=== PATIENT | female | born 1990 | race Hispanic/Latino ===

== ENCOUNTER 2018-09-30 17:10 | Emergency (ER) | payer MEDICAID ==
[2018-09-30 18:46] LABS: BASO % 0.3 % (0.0-2.0); EOS # 0.1 K/uL (0.0-0.7); EOS % 1.7 % (0.0-4.0); HEMOGLOBIN 12.7 g/dL (12.0-16.0); LYMPH % 28.2 % (20.0-40.0); MEAN CORPUSCULAR HEMOGLOBIN 29.6 pg (27.0-31.0); MEAN CORPUSCULAR HGB CONC 33.6 g/dL (33.0-37.0); MEAN PLATELET VOLUME 7.7 fl (7.2-11.7); MONO # 0.5 K/uL (0.0-0.8); MONO % 7.3 % (0.0-10.0); NEUT # 4.5 K/uL (1.8-7.0); NEUT % 62.5 % (50.0-75.0); NRBC % 0.1 % (0.0-0.0); RBC 4.31 Mil/uL (3.80-5.20); RED CELL DISTRIBUTION WIDTH 13.3 % (11.5-14.5); WHITE BLOOD COUNT 7.2 K/uL (4.8-10.8)
[2018-09-30 18:54] LABS: SQUAMOUS EPITHIAL 4 /hpf (0-5); URINE BACTERIA RARE (<OCC); URINE BILIRUBIN NEGATIVE (NEGATIVE); URINE BLOOD NEGATIVE (NEGATIVE); URINE CLARITY SLIGHTY-CLOUDY (Clear); URINE COLOR YELLOW (YELLOW); URINE GLUCOSE (UA) NEG (NEGATIVE); URINE LEUKOCYTE ESTERASE NEG Leu/uL (Negative); URINE PROTEIN NEGATIVE (NEGATIVE); URINE UROBILINOGEN 0.2-1.0 mg/dL (0.2-1.0)
[2018-09-30 18:59] LABS: BLOOD UREA NITROGEN 13 mg/dl (7-17); CALCIUM 9.1 mg/dL (8.4-10.2); GFR NON-AFRICAN AMERICAN > 60
--- NOTE | 2018-09-30 20:04 | ED PDOC ---
History of Present Illness History of Present Illness: 27 year old female with a history of hypothyroidism and gastritis presents to the ED for evaluation of constant nausea, lower abdominal pain, decreased appetite, left ear and throat pain and a left sided headache for 1 1/2 weeks. Patient reports symptoms are also associated with four episodes of vomiting and occasional cough. She states that nausea is strongly related to certain smells. LNMP was in the beginning of August. Initially, she was suspicious for , but took an at home test that was negative. Noted that patient has been defecating less often that usual, only once a day, and states that is could be related to decreased food intake. Last normal bowel movement was this morning. She reports that these current symptoms feel different than past episodes of gastritis. Denies urinary symptoms, vaginal bleeding, sick contacts and any recent travel. PMD: none HPI: Influenza Time Seen by Provider: 09/30/18 17:55 Chief Complaint: Abdominal Pain Chief Complaint (Provider): Abdominal Pain History Per: Patient Exam Limitations: no limitations Have you had recent travel within the past 21 days to any of: No Onset/Duration Of Symptoms: Days (1 1/2 weeks) Symptoms include: headache, sore throat, vomiting, other (decreased appetite) Sick Contacts (Context): None Past Medical History Reviewed: Historical Data, Nursing Documentation, Vital Signs Vital Signs: Last Vital Signs Temp 98.8 F 09/30/18 17:44 Pulse 70 09/30/18 17:44 Resp 18 09/30/18 17:44 BP 136/87 09/30/18 17:44 Pulse Ox 100 09/30/18 17:44 - Medical History PMH: Gastritis, Hypothyroidism Denies: Chronic Kidney Disease - Surgical History Surgical History: Tonsillectomy - Family History Family History: States: Unknown Family Hx - Social History Current smoker - smoking cessation education provided: No Drugs: Cannabis (occasionally) - Home Medications Home Medications: Ambulatory Orders Medication Instructions Recorded Amoxicillin/Clavulanate Pota 1 tab PO BID #0 tab 03/09/15 [Augmentin 875 mg-125 mg] Sulfamethoxazole/Trimethoprim 1 tab PO BID #0 tab 03/09/15 [Bactrim DS 800 mg-160 mg] Terconazole [Terazol 7 (0.4%)Cream] 1 applic VG HS #0 tube 03/09/15 - Allergies Allergies/Adverse Reactions: Allergies Allergy/AdvReac Type Severity Reaction Status Date / Time No Known Allergies Allergy Verified 03/07/15 03:22 Review of Systems ROS Statement: Except As Marked, All Systems Reviewed And Found Negative Constitutional: Positive for: Other. Negative for: Fever, Chills ENT: Positive for: Ear Pain (left), Throat Pain Gastrointestinal: Positive for: Nausea, Vomiting, Abdominal Pain (lower) Neurological: Positive for: Headache (left) - Laboratory Results Result Diagrams: 09/30/18 18:15 09/30/18 18:15 Lab Results: Urine Color Yellow (YELLOW) 09/30/18 18:15 Urine Clarity Slighty-cloudy (Clear) 09/30/18 18:15 Urine pH 6.0 (5.0-8.0) 09/30/18 18:15 Ur Specific [place] 1.024 (1.003-1.030) 09/30/18 18:15 Urine Protein Negative mg/dL (NEGATIVE) 09/30/18 18:15 Urine Glucose (UA) Neg mg/dL (NEGATIVE) 09/30/18 18:15 Urine Ketones Trace mg/dL (NEGATIVE) 09/30/18 18:15 Urine Blood Negative (NEGATIVE) 09/30/18 18:15 Urine Nitrate Negative (NEGATIVE) 09/30/18 18:15 Urine Bilirubin Negative (NEGATIVE) 09/30/18 18:15 Urine Urobilinogen 0.2-1.0 mg/dL (0.2-1.0) 09/30/18 18:15 Ur Leukocyte Esterase Neg Cristian/uL (Negative) 09/30/18 18:15 Urine RBC (Auto) 2 /hpf (0-3) 09/30/18 18:15 Urine Microscopic WBC 1 /hpf (0-5) 09/30/18 18:15 Ur Squamous Epith Cells 4 /hpf (0-5) 09/30/18 18:15 Urine Bacteria Rare (<OCC) 09/30/18 18:15 Beta HCG, Quant 875288.00 mIU/mL 09/30/18 18:40 - ECG O2 Sat by Pulse Oximetry: 100 Disposition - Disposition
--- NOTE | 2018-09-30 20:07 | ED PDOC ---
HPI: Abdomen Time Seen by Provider: 09/30/18 17:55 Chief Complaint (Nursing): Abdominal Pain Chief Complaint (Provider): Abdominal Pain History Per: Patient History/Exam Limitations: no limitations Onset/Duration Of Symptoms: Days (1 1/2 weeks) Outside of [place] travel?: No Current Symptoms Are (Timing): Still Present Quality Of Discomfort: "Pain" Associated Symptoms: Nausea, Vomiting, Loss Of Appetite. denies: Urinary Sy mptoms Additional Complaint(s): 27 year old female with a history of hypothyroidism and gastritis presents to the ED for evaluation of constant nausea, lower abdominal pain, decreased appetite, left ear and throat pain and a left sided headache for 1 1/2 weeks. Patient reports symptoms are also associated with four episodes of vomiting and occasional cough. She states that nausea is strongly related to certain smells. LNMP was in the beginning of August. Initially, she was suspicious for , but took an at home test that was negative. Noted that paty flood has been defecating less often that usual, only once a day, and states that is could be related to decreased food intake. Last normal bowel movement was this morning. She reports that these current symptoms feel different than past episodes of gastritis. Denies urinary symptoms, vaginal bleeding, sick contacts and any recent travel. Abnormal Vaginal Bleeding: No Last Menstral Period: Beginning of August Past Medical History Reviewed: Historical Data, Nursing Documentation, Vital Signs Vital Signs: Last Vital Signs Temp 98.8 F 09/30/18 17:44 Pulse 70 09/30/18 17:44 Resp 18 09/30/18 17:44 BP 136/87 09/30/18 17:44 Pulse Ox 100 09/30/18 17:44 - Medical History PMH: Gastritis, Hypothyroidism Denies: Chronic Kidney Disease - Surgical History Surgical History: Tonsillectomy - Family History Family History: States: Unknown Family Hx - Social History Current smoker - smoking cessation education provided: No Drugs: Cannabis (occasionally) - Home Medications Home Medications: Ambulatory Orders Medication Instructions Recorded Amoxicillin/Clavulanate Pota 1 tab PO BID #0 tab 03/09/15 [Augmentin 875 mg-125 mg] Sulfamethoxazole/Trimethoprim 1 tab PO BID #0 tab 03/09/15 [Bactrim DS 800 mg-160 mg] Terconazole [Terazol 7 (0.4%)Cream] 1 applic VG HS #0 tube 03/09/15 Amoxicillin 875 mg PO BID 10 Days #20 tablet 09/30/18 Doxylamine/Pyridoxine HCl (B6) 2 each PO TID #30 tablet. 09/30/18 [Star James 10-10 mg Tablet] Oseltamivir Phosphate [Tamiflu] 75 mg PO BID 5 Days #10 capsule 09/30/18 - Allergies Allergies/Adverse Reactions: Allergies Allergy/AdvReac Type Severity Reaction Status Date / Time No Known Allergies Allergy Verified 03/07/15 03:22 Review of Systems ROS Statement: Except As Marked, All Systems Reviewed And Found Negative Constitutional: Negative for: Fever, Chills ENT: Positive for: Ear Pain (left), Throat Pain Respiratory: Positive for: Cough (occasional) Gastrointestinal: Positive for: Nausea, Vomiting, Abdominal Pain. Negative for: Diarrhea, Constipation Genitourinary Female: Negative for: Dysuria, Frequency, Incontinence, Hematuria Neurological: Positive for: Headache (left sided) Physical Exam - Reviewed Nursing Documentation Reviewed: Yes Vital Signs Reviewed: Yes - Physical Exam Comments: GENERAL APPEARANCE: Patient is awake, alert, not toxic appearing, in no acute distress, in no obvious discomfort. HEAD: Atraumatic SKIN: Warm, dry; (-) cyanosis; (-) petechiae, (-) rash. EYES: EOMI, (-) conjunctival pallor, (-) icterus. ENMT: TMs: left: (+) erythema, (+) bulging; Right: (-) erythema, (-) bulging. Pharynx: (+) erythema to posterior pharynx (-) tonsillar erythema, (-) tonsillar exudate, (-) trismus. Airway patent, (-) stridor. Mucous membranes moist. NECK: (-) stiffness, (-) meningismus, (-) lymphadenopathy. CHEST AND RESPIRATORY: (-) retractions, (-) rales, (-) rhonchi, (-) wheezes; breath equal bilaterally. HEART AND CARDIOVASCULAR: (-) irregularity; (-) murmur, (-) gallop. ABDOMEN AND GI: Soft; (+) diffuse lower abdominal tenderness, (+) normal bowel sounds; (-) distention, (-) guarding; (-) palpable mass. EXTREMITIES: (-) deformity; distal pulses are present. NEURO AND PSYCH: Mental status as above; plant general manager II-XII intact; interacts appropriately. Strength and tone good. - Laboratory Results Result Diagrams: 09/30/18 18:15 09/30/18 18:15 Lab Results: Urine Color Yellow (YELLOW) 09/30/18 18:15 Urine Clarity Slighty-cloudy (Clear) 09/30/18 18:15 Urine pH 6.0 (5.0-8.0) 09/30/18 18:15 Ur Specific [place] 1.024 (1.003-1.030) 09/30/18 18:15 Urine Protein Negative mg/dL (NEGATIVE) 09/30/18 18:15 Urine Glucose (UA) Neg mg/dL (NEGATIVE) 09/30/18 18:15 Urine Ketones Trace mg/dL (NEGATIVE) 09/30/18 18:15 Urine Blood Negative (NEGATIVE) 09/30/18 18:15 Urine Nitrate Negative (NEGATIVE) 09/30/18 18:15 Urine Bilirubin Negative (NEGATIVE) 09/30/18 18:15 Urine Urobilinogen 0.2-1.0 mg/dL (0.2-1.0) 09/30/18 18:15 Ur Leukocyte Esterase Neg Cristian/uL (Negative) 09/30/18 18:15 Urine RBC (Auto) 2 /hpf (0-3) 09/30/18 18:15 Urine Microscopic WBC 1 /hpf (0-5) 09/30/18 18:15 Ur Squamous Epith Cells 4 /hpf (0-5) 09/30/18 18:15 Urine Bacteria Rare (<OCC) 09/30/18 18:15 Beta HCG, Quant [id number] mIU/mL 09/30/18 18:40 - ECG O2 Sat by Pulse Oximetry: 100 (RA) Pulse Ox Interpretation: Normal Medical Decision Making Medical Decision Makin:00 Plan: --BMP --CBC --Beta-HCG --urine preg --Reglan 10 mg PO --Tylenol 650 mg PO --throat cx --Influenza AB --Strep --UA test is positive; influenza is positive --Tamiflu 75 mg PO --Ob transvag 20:00 case endorsed to LUIS Reed, pending OB US results and dispo ------ Scribe Attestation: Documented by Bertha Padilla, acting as a scribe Laila Zimmerman PA-C Provider Scribe Attestation: All medical record entries made by the Scribe were at my direction and personall y dictated by me. I have reviewed the chart and agree that the record accurately reflects my personal performance of the history, physical exam, medical decision making, and the department course for this patient. I have also personally directed, reviewed, and agree with the discharge instructions and disposition Disposition - Clinical Impression Clinical Impression: , Influenza A, Otitis media, left - Patient ED Disposition Is Patient to be Admitted: Transfer of Care (case endorsed to LUIS Reed, pending OB US results and dispo) - Disposition Disposition: Transfer of Care (case endorsed to LUIS Reed, pending OB US results and dispo) Disposition Time: 20:04 Condition: STABLE Prescriptions: Amoxicillin 875 mg PO BID 10 Days #20 tablet Doxylamine/Pyridoxine HCl (B6) [Star James 10-10 mg Tablet] 2 each PO TID #30 tablet. Oseltamivir Phosphate [Tamiflu] 75 mg PO BID 5 Days #10 capsule Forms: [employer] (Czech)
--- NOTE | 2018-09-30 20:58 | ED PDOC ---
- Laboratory Results Result Diagrams: 09/30/18 18:15 09/30/18 18:15 Lab Results: Urine Color Yellow (YELLOW) 09/30/18 18:15 Urine Clarity Slighty-cloudy (Clear) 09/30/18 18:15 Urine pH 6.0 (5.0-8.0) 09/30/18 18:15 Ur Specific [place] 1.024 (1.003-1.030) 09/30/18 18:15 Urine Protein Negative mg/dL (NEGATIVE) 09/30/18 18:15 Urine Glucose (UA) Neg mg/dL (NEGATIVE) 09/30/18 18:15 Urine Ketones Trace mg/dL (NEGATIVE) 09/30/18 18:15 Urine Blood Negative (NEGATIVE) 09/30/18 18:15 Urine Nitrate Negative (NEGATIVE) 09/30/18 18:15 Urine Bilirubin Negative (NEGATIVE) 09/30/18 18:15 Urine Urobilinogen 0.2-1.0 mg/dL (0.2-1.0) 09/30/18 18:15 Ur Leukocyte Esterase Neg Cristian/uL (Negative) 09/30/18 18:15 Urine RBC (Auto) 2 /hpf (0-3) 09/30/18 18:15 Urine Microscopic WBC 1 /hpf (0-5) 09/30/18 18:15 Ur Squamous Epith Cells 4 /hpf (0-5) 09/30/18 18:15 Urine Bacteria Rare (<OCC) 09/30/18 18:15 Beta HCG, Quant [id number] mIU/mL 09/30/18 18:40 - ECG O2 Sat by Pulse Oximetry: 100 (RA) - Progress ED Course And Treament: Case endorsed to technical proposal writer from [facility] pending ultrasound and final dispo History Abdominal pain. Comparison None available. Findings Uterus Single live intrauterine gestation. CRL equivalent to 7 wks/1 day gestation Gestational sac diameter equivalent to 7 wks/4 days gestation Heart rate: 143 bpm. [place]-gestational hemorrhage: None. Uterus measures 9 x 6.9 x 5.9 cm. No mass. Cervix Long and closed measuring 3.56 cm. No cervical abnormality seen. Right Ovary Measures 3.7 x 3.1 x 2.3 cm with volume of 13.63 cc. No mass. Normal flow. Cyst measures 1.9 x 1.6 x 1.4 cm. Left Ovary Measures 2.2 x 1.4 x 1.3 cm with volume of 2.21 cc. No mass. Normal flow. Free Fluid None. Other Findings None. Impression 1. Single live intrauterine gestation. 2. Right ovarian cyst 21:00 Patient vomiting, Zofran ordered Patient states she is feeling better on re-eval, tolerating PO. Vitals stable Patient educated on findings, discharged with rx Tamiflu, Amoxicillin, and Diclegis as previously instructed Advised follow up PMD within 2-3 days Fluids, rest Tylenol PRN pain/fever Return precautions given Disposition - Clinical Impression Clinical Impression: , Influenza A, Otitis media, left - POA Present On Arrival: None - Disposition Disposition: Routine/Home Disposition Time: 22:16 Condition: IMPROVED Prescriptions: Amoxicillin 875 mg PO BID 10 Days #20 tablet Doxylamine/Pyridoxine HCl (B6) [Star [place] 10-10 mg Tablet] 2 each PO TID #30 tablet. Oseltamivir Phosphate [Tamiflu] 75 mg PO BID 5 Days #10 capsule Instructions: Ear Infections (Otitis Media), Flu, - The First Month Forms: [employer] (Urdu)
[2018-09-30 21:21] VITALS: BP 117/70; PULSE 60; RESP 20; TEMP 98.3
[2018-09-30 22:16] VITALS: O2SAT 100
--- NOTE | 2018-10-01 10:33 | US ---
Date of service: 09/30/2018 PROCEDURE: TECHNIQUE: Transabdominal transvaginal HISTORY: lower abd pain LMP 08/09/2018. Estimated gestational age by LMP is 7 weeks 3 days. COMPARISON: None UTERUS: Measures 9.0 x 6.9 x 5.9cm. The uterus is anteverted. No fibroid or other mass lesion seen. An intrauterine gestational sac is present corresponding to a 7 week 4 day gestation. yolk sac is present. [place]-rump length embryonic pole measures 1.01 cm. At 143 beats per minute, cardiac activity noted No subchorionic hemorrhage noted Cervix No cervical abnormality identified. Cervix measures 3.56 cm RIGHT OVARY: Measures 3.7 x 3.1 x 2.3 cm. No solid mass. Normal flow. A small follicular cyst or early corpus luteal cyst measuring 1.9 x 1.6 x 1.4 cm in size is noted. LEFT OVARY: Measures 2.2 x 1.4 x 1.3 cm. No solid mass. Normal flow. FREE FLUID: There is no free fluid present. OTHER FINDINGS: None IMPRESSION: Single intrauterine gestation with cardiac activity whose ultrasound gestational age by biometric parameters is 7 weeks 3 days +/-0 weeks 4 days with an estimated date of delivery of 05/16/2019. No subchorionic hemorrhage seen. Concordant results (preliminary interpretation) provided by sandhya.
== END 2018-09-30 22:36 | disposition home or self-care (01) ==
LOC: H.ER 17:10
DX: J11.83 Influenza due to unidentified influenza virus with otitis media (principal); O21.9 Vomiting of pregnancy, unspecified; N83.201 Unspecified ovarian cyst, right side; O26.891 Other specified pregnancy related conditions, first trimester; O34.81 Maternal care for other abnormalities of pelvic organs, first trimester; O99.89 Other specified diseases and conditions complicating pregnancy, childbirth and the puerperium; Z3A.01 Less than 8 weeks gestation of pregnancy; O99.281 Endocrine, nutritional and metabolic diseases complicating pregnancy, first trimester; E03.9 Hypothyroidism, unspecified
CPT/HCPCS: 76815; 76817; 80048; 81003; 81025; 84702; 85025; 87070; 87430; 87804; 96374; 99283; J2405; J2765